=== PATIENT | female | born 1980 | race African-American/Black ===

== ENCOUNTER 2020-11-06 11:18 | Emergency (ER) | payer OTHER ==
[~2020-11-06] VITALS: Ht 175.3 cm; Wt 118.2 kg
[2020-11-06 11:20] VITALS: BP 138/90
[2020-11-06] MEDS ORDERED: ASPIRIN CHEWABLE 81 MG TABLET. PO ONE (11:30)
--- NOTE | 2020-11-06 11:38 | PHYS DOC ---
General Adult EDM: Chief Complaint: CHEST PAIN HPI: HPI: Patient is a 40-year-old female who presents to the ER for midsternal chest pain that started yesterday and a headache that started today. Patient rates her pain 10 out of 10. It does not radiate. No treatment prior to arrival. Worse with inspiration. No alleviating factors. Patient denies nausea, vomiting, shortness of breath, fever, lightheadedness, sick exposures. Patient has a history of bilateral lower extremity edema no cardiac history and no family cardiac history. Patient is in no acute distress and her vital signs are stable. (RUFUS MORIN APRN) Review of Systems: Review of Systems: 14 body systems of the review of systems have been reviewed. See HPI for pertinent positive and negative responses, otherwise all other systems are negative, nonpertinent or noncontributory (RUFUS MORIN APRN) Current Medications: Current Meds: Current Medications Medications (Trade) Dose Ordered Sig/Desiree Start Time Stop Time Status Last Admin Dose Admin Aspirin (Aspirin Chewable) 324 mg 1X ONCE 11/06/20 11:30 11/06/20 11:31 UNV (RUFUS MORIN APRN) Physical Exam: PE: Constitutional: Well developed, well nourished, no acute distress, non-toxic appearance. [] HENT: Normocephalic, atraumatic Eyes: PERRL, EOMI, conjunctiva normal, no discharge. [] Neck: Normal range of motion, no stridor Cardiovascular:Heart rate regular rhythm, no murmur, midsternal chest pain reproducible [] Lungs & Thorax: Bilateral breath sounds clear to auscultation [] Abdomen: Bowel sounds normal, soft, no tenderness, no masses, no pulsatile masses. [] Skin: Warm, dry, no erythema, no rash. [] Back: Normal range of motion Extremities: No tenderness, no cyanosis, no clubbing, ROM intact, no edema. [] Neurologic: Alert and oriented X 3, normal motor function, normal sensory function, no focal deficits noted. [] Psychologic: Affect normal, judgement normal, mood normal. [] (RUFUS MORIN APRN) EKG: EKG: EKG performed at 1127 shows sinus rhythm, no STEMI as read by Dr. Woods at 1130. (RUFUS MORIN APRN) Radiology/Procedures: Radiology/Procedures: [] (RUFUS MORIN APRN) Heart Score: C/O Chest Pain: Yes HEART Score for Chest Pain: HEART Score for Chest Pain Response (Comments) Value History Slighlty/Non-Suspicious 0 Age < 45 0 Risk Factors No Risk Factors 0 Total 0 Risk Factors: Risk Factors: DM, Current or recent (<one month) smoker, HTN, HLP, family history of CAD, obesity. Risk Scores: Score 0 - 3: 2.5% MACE over next 6 weeks - Discharge Home Score 4 - 6: 20.3% MACE over next 6 weeks - Admit for Clinical Observation Score 7 - 10: 72.7% MACE over next 6 weeks - Early Invasive Strategies (RUFUS MORIN APRN) Course & Med Decision Making: Course & Med Decision Making Pertinent Labs and Imaging studies reviewed. (See chart for details) Patient is a 40-year-old female being seen in the ER for midsternal chest pain. Work-up in the ER consisted of blood work, EKG, chest x-ray. Per ER staff, patient reports that she received a phone call while in her room that was notifying her that she had a positive Covid exposure patient reports that she believes that that is what is causing her symptoms and would like a rapid Covid test. Patient was advised that we do not perform rapid Covid test in the ER. Patient reports that she wants to sign out AGAINST MEDICAL ADVICE and go to another facility where she can obtain a rapid Covid test. AMA paperwork signed. Patient aware of the risks associated with leaving AGAINST MEDICAL ADVICE which includes worsening of condition and . (RUFUS MORIN APRN) Dragon Disclaimer: Dragon Disclaimer: This electronic medical record was generated, in whole or in part, using a voice recognition dictation system. (RUFUS MORIN APRN) Attending Co-Sign The patient was seen and interviewed as well as examined at the bedside. The chart was reviewed. The case was discussed. Agree with the plan of care. (KARLO WOODS DO) Departure Departure: Impression: Primary Impression: Chest pain Qualified Codes: R07.9 - Chest pain, unspecified Disposition: 07 LEFT AGAINST MEDICAL ADVICE Condition: STABLE Referrals: JOSE ROYAL MD (PCP) RUFUS MORIN APRN Nov 06, 2020 11:38 KARLO WOODS DO Nov 07, 2020 06:13
--- NOTE | 2020-11-06 11:53 | EKG ---
[address] [address] Test Date: 2020-11-06 Test Time: 11:27:13 Pat Name: LIZZ ABRAHAM Department: Room: Gender: F Hydrogen Treater: KLARISSA : 1980 Requested By: RUFUS MORIN Order Number: [id number] Reading MD: Measurements Intervals [place] Rate: 96 P: 28 [place]: 160 QRS: -18 QRSD: 100 T: 7 QT: 338 QTc: 433 Interpretive Statements SINUS RHYTHM LEFTWARD AXIS INCOMPLETE RIGHT BUNDLE BRANCH BLOCK OTHERWISE NORMAL ECG RI6.02 No previous ECG available for comparison
--- NOTE | 2020-11-06 12:00 | RAD ---
XR CHEST 1V History: Reason: cp / Spl. Instructions: / History: Comparison: July 04, 2011 Findings: No consolidation or pleural effusion. Normal heart size. No pneumothorax. Impression: 1. No acute cardiopulmonary process. Electronically signed by: Rocky Maharaj DO (11/06/2020 11:58 AM) [id number]
== END 2020-11-06 12:04 | disposition left against medical advice (07) ==
LOC: ER 11:18
DX: R07.2 Precordial pain (principal); R51.9 Headache, unspecified
CPT/HCPCS: 71045; 93005; 99283

== ENCOUNTER 2021-01-25 16:15 | Emergency (ER) | payer OTHER ==
[~2021-01-25] VITALS: Ht 175.3 cm; Wt 127.2 kg
[2021-01-25 16:27] VITALS: BP 149/93
[2021-01-25] MEDS ORDERED: IBUPROFEN 600 MG TABLET. PO ONE (16:45)
--- NOTE | 2021-01-25 17:16 | RAD ---
XR KNEE _4 VIEWS WITH PATELLA_LT History: Reason: fall / Spl. Instructions: / History: . Pain Technique: 4 views left knee Comparison: None. Findings: Normal alignment. No acute fracture. Minimal knee joint effusion. Mild patellar spurring. Impression: 1. No acute osseous abnormality. Electronically signed by: Rocky Maharaj DO (01/25/2021 5:13 PM) [facility]
[2021-01-25] MEDS ORDERED: HYDR-2155 PO (17:21)
--- NOTE | 2021-01-25 17:22 | PHYS DOC ---
Past History Additional Past Medical Histor: lower ext edema (KESHIA MONTES DE OCA APRN) Past Surgical History: No Surgical History Additional Past Surgical Histo: breast reduction (KESHIA MONTES DE OCA APRN) Alcohol Use: None (KESHIA MONTES DE OCA APRN) General Adult EDM: Chief Complaint: KNEE INJURY HPI: HPI: Patient is a 41-year-old female presents with left knee pain after slipping and falling in her kitchen. Patient states that there was cereal spilled on the floor and she stepped in it and slipped and fell. Patient is unsure of how she fell but has had left knee pain since. Patient is able to ambulate and has full range of motion. Patient states pain is worse with ambulation. Denies taking anything for pain prior to arrival. (KESHIA MONETS DE OCA APRN) Review of Systems: Review of Systems: Constitutional: Denies fever or chills Eyes: Denies change in visual acuity HENT: Denies nasal congestion or sore throat Respiratory: Denies cough or shortness of breath Cardiovascular: Denies chest pain or edema GI: Denies abdominal pain, nausea, vomiting, bloody stools or diarrhea : Denies dysuria Musculoskeletal: Denies back pain or joint pain Integument: Denies rash Neurologic: Denies headache, focal weakness or sensory changes Endocrine: Denies polyuria or polydipsia Lymphatic: Denies swollen glands Psychiatric: Denies depression or anxiety (KESHIA MONTES DE OCA APRN) Current Medications: Current Meds: Current Medications Medications (Trade) Dose Ordered Sig/Desiree Start Time Stop Time Status Last Admin Dose Admin Ibuprofen (Motrin) 600 mg 1X ONCE 01/25/21 16:45 01/25/21 16:49 DC 01/25/21 17:07 600 MG (KESHIA MONTES DE OCA APRN) Allergies: Allergies: Allergies Coded Allergies Type Severity Reaction Last Updated Verified No Known Drug Allergies 01/25/21 No (KESHIA MONTES DE OCA APRN) Physical Exam: PE: Constitutional: Well developed, well nourished, no acute distress, non-toxic appearance. [] HENT: Normocephalic, atraumatic, bilateral external ears normal, oropharynx moist, no oral exudates, nose normal. [] Eyes: PERRLA, EOMI, conjunctiva normal, no discharge. [] Neck: Normal range of motion, no tenderness, supple, no stridor. [] Cardiovascular:Heart rate regular rhythm, no murmur [] Lungs & Thorax: Bilateral breath sounds clear to auscultation [] Abdomen: Bowel sounds normal, soft, no tenderness, no masses, no pulsatile masses. [] Skin: Warm, dry, no erythema, no rash. [] Back: No tenderness, no CVA tenderness. [] Extremities: Left knee tenderness, no cyanosis, no clubbing, ROM intact, no edema. [] Neurologic: Alert and oriented X 3, normal motor function, normal sensory function, no focal deficits noted. [] Psychologic: Affect normal, judgement normal, mood normal. [] (KESHIA MONTES DE OCA APRN) Current Patient Data: Vital Signs: Vital Signs Date Time Temp Pulse Resp B/P (MAP) Pulse Ox O2 Delivery O2 Flow Rate FiO2 01/25/21 16:27 98.8 91 20 149/93 (111) 99 Room Air (KESHIA MONTES DE OCA APRN) EKG: EKG: [] (KESHIA MONTES DE OCA APRN) Radiology/Procedures: Radiology/Procedures: []XR KNEE _4 VIEWS WITH PATELLA_LT History: Reason: fall / Spl. Instructions: / History: . Pain Technique: 4 views left knee Comparison: None. Findings: Normal alignment. No acute fracture. Minimal knee joint effusion. Mild patellar spurring. Impression: 1. No acute osseous abnormality. Electronically signed by: Rocky Maharaj DO (01/25/2021 5:13 PM) [facility] (KESHIA MONTES DE OCA APRN) Heart Score: C/O Chest Pain: No Risk Factors: Risk Factors: DM, Current or recent (<one month) smoker, HTN, HLP, family history of CAD, obesity. Risk Scores: Score 0 - 3: 2.5% MACE over next 6 weeks - Discharge Home Score 4 - 6: 20.3% MACE over next 6 weeks - Admit for Clinical Observation Score 7 - 10: 72.7% MACE over next 6 weeks - Early Invasive Strategies (KESHIA MONTES DE OCA APRN) Course & Med Decision Making: Course & Med Decision Making Pertinent Labs and Imaging studies reviewed. (See chart for details) [] 41-year-old female presents with left knee pain after slipping and falling at home. X-rays negative for fracture. Rice instructions given. Advised patient to take ibuprofen at home for pain. Patient sent home with hydrocodone that s he can follow-up with her PCP. (KESHIA MONTES DE OCA APRN) Course & Med Decision Making I was the Attending physician on the above date of service of this patient. This patient was evaluated, examined, treated, and dispositioned from the emergency department by the mid-level practitioner. Although I was working at the time , no assistance was requested. Electronically signed, Dana Del Rio DO (DANA DEL RIO DO) Tono Disclaimer: Tono Disclaimer: This electronic medical record was generated, in whole or in part, using a voice recognition dictation system. (KESHIA MONTES DE OCA APRN) Departure Departure: Impression: Primary Impression: Knee pain, left Qualified Codes: M25.562 - Pain in left knee Disposition: HOME / SELF CARE / HOMELESS Condition: STABLE Referrals: JOSE ROYAL MD (PCP) Patient Instructions: Knee Pain, [id number] Additional Instructions: You are seen in the emergency room for knee pain after a fall. Knee x-ray was negative for fracture. Rest, use ice, elevate. Can use ibuprofen for discomfort. Please follow-up with your PCP for further imaging if pain continues. Return emergency room for worsening symptoms or concerns. EMERGENCY DEPARTMENT GENERAL DISCHARGE INSTRUCTIONS Thank you for coming to [facility] (ED) today and trusting us with you care. We trust that you had a positivie experience in our Emergency Department. If you wish to speak to the department management, you may call the director at [phone]. YOUR FOLLOW UP INSTRUCTIONS ARE FOLLOWS: 1. Do you have a private Doctor? If you do not have a private doctor, please ask for a resource list of physicians or clinics that may be able to assist you with follow up care. 2. The Emergency Physician has interpreted your x-rays. The X-Ray specialist will also review them. If there is a change in the findings, you will be notified in 48 hours when at all possible. 3. A lab test or culture has been done, your results will be reviewed and you will be notified if you need a change in treatment. ADDITIONAL INSTRUCTIONS AND INFORMATION: 1. Your care today has been supervised by a physician who is specially trained in emergency care. Many problems require more than one evaluation for a complete diagnosis and treatment. We recommend that you schedule your follow up appointment as recommended to ensure complete treatment of you illness or injury. If you are unable to obtain follow up care and continue to have a problem, or if your condition worsens, we recommend that you return to the ED. 2. We are not able to safely determine your condition over the phone nor are we able to give sound medical advice over the phone. For these safety reasons, if you call for medical advice we will ask you to come to the ED for further evaluation. 3. If you have any questions regarding these discharge instructions please call the ED at [phone]. SAFETY INFORMATION: In the interest of safety, wellness, and injury prevention; we encourage you to wear your sealbelt, if you smoke; quite smoking, and we encourage family to use a protective helmet for bicycling and other sporting events that present an increased risk for head injury. IF YOUR SYMPTOMS WORSEN OR NEW SYMPTOMS DEVELOP, OR YOU HAVE CONCERNS ABOUT YOUR CONDITION; OR IF YOUR CONDITION WORSENS WHILE YOU ARE WAITING FOR YOUR FOLLOW UP APPOINTMENT; EITHER CONTACT YOUR PRIMARY CARE DOCTOR, THE PHYSICIAN WHOSE NAME AND NUMBER YOU WERE GIVEN, OR RETURN TO THE ED IMMEDIATELY. Scripts Hydrocodone Bit/Acetaminophen (HYDROCODONE-APAP 5-325 ) 1 Each Tablet 0.5-1 TAB PO PRN Q6HRS PRN for PAIN for 3 Days, #12 TAB 0 Refills Prov: KESHIA MONTES DE OCA APRN 01/25/21 KESHIA MONTES DE OCA APRN Jan 25, 2021 17:22 DANA DEL RIO DO Jan 28, 2021 00:43
== END 2021-01-25 17:20 | disposition home or self-care (01) ==
LOC: ER 16:15
DX: M25.562 Pain in left knee (principal); W01.0XXA Fall on same level from slipping, tripping and stumbling without subsequent striking against object, initial encounter; Y93.89 Activity, other specified; Y92.89 Other specified places as the place of occurrence of the external cause; Y99.8 Other external cause status
CPT/HCPCS: 73564; 99283